=== PATIENT | female | born 1990 | race American Indian/Alaskan Native ===

== ENCOUNTER 2019-01-30 10:58 | Outpatient (CLI) | payer MEDICAID, OTHER ==
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
[2019-01-30 10:52] VITALS: BP 130/70
== END 2019-01-30 12:04 | disposition home or self-care (01) ==
LOC: TRG 10:58 → EDSTATUS 11:18 → TRG 12:04
PROVIDERS: ATTEND Emergency Medicine Emergency Medical Services
DX: O26.893 Other specified pregnancy related conditions, third trimester (principal); Z3A.38 38 weeks gestation of pregnancy; M54.5 Low back pain; Z86.2 Personal history of diseases of the blood and blood-forming organs and certain disorders involving the immune mechanism; V89.2XXA Person injured in unspecified motor-vehicle accident, traffic, initial encounter; Y93.89 Activity, other specified; Y92.89 Other specified places as the place of occurrence of the external cause; Y99.8 Other external cause status
CPT/HCPCS: 59025